=== PATIENT | female | born 1960 | race Caucasian/White ===

== ENCOUNTER → 2018-03-18 | Outpatient (CLI) | payer OTHER ==
[~2018-03-18] MED LIST: ALPR-138 PO; ALPR0.25 PO; AMLO5TAB2 PO; AMLO5TAB22 PO; COZA25TA PO; ESTR0.5T3 PO; ESTR0.5T9 PO; HCTZ50 PO; HYDR25TA5 PO; LOSA25TA31 PO; MELO15TA20 PO; PLAQ200T PO; RANI1TAB5 PO; SERT-129 PO; SERT50 PO
== END ==
LOC: CPRE 11:26
PROVIDERS: ATTEND Orthopaedic Surgery
DX: M17.12 Unilateral primary osteoarthritis, left knee (principal)

== ENCOUNTER 2018-04-03 07:00 | Inpatient (IN) | payer OTHER ==
[~2018-04-03] VITALS: Ht 165.1 cm; Wt 106.4 kg
[~2018-04-03 07:00] MED LIST changes: -ALPR-138 PO; -AMLO5TAB22 PO; -ESTR0.5T9 PO; -HCTZ50 PO; -LOSA25TA31 PO; -SERT50 PO
[2018-04-03 09:22] LABS: BACTERIA, URINE RARE /hpf; BILIRUBIN, URINE NEG (NEG); BLOOD, URINE NEG (NEG); GLUCOSE,URINE NEG (NEG); KETONE, URINE NEG (NEG); NITRITE,URINE NEG (NEG); SQUAMOUS EPITHELIAL CELL URINE 4 /hpf (0-5); TRANSITIONAL EPI CELLS, URINE <1 /hpf; URINE COLOR YELLOW (YELLW/STRAW); URINE LEUKOCYTE ESTERASE LARGE (NEG); WHITE BLOOD CELL CLUMPS RARE
[2018-04-03] MEDS ORDERED: DEXAMETHASONE SOD PHOS 20 MG/5 ML VIAL IV PUSH SCH (09:30)
[2018-04-03] MEDS ORDERED: ceFAZolin 2 GM PREMIX 50 ML IV SCH (09:30)
[2018-04-03] MEDS ORDERED: CHLORHEXIDINE GLUCONATE 4% SOLN 120 ML BTL TOPICAL SCH (09:30)
[2018-04-03] MEDS ORDERED: POVIDONE IODINE 7.5% SCRUB 118 ML BOTTLE TOPICAL SCH (09:30)
[2018-04-03] MEDS ORDERED: BUPIVACAINE HCL PF 0.5% 30 ML VIAL ONE (09:34)
[2018-04-03] MEDS ORDERED: BUPIVACAINE LIPOSOME PF 1.3% 20 ML VIAL ONE (09:35)
[2018-04-03] MEDS ORDERED: MIDAZOLAM HCL 2 MG/2 ML VIAL ONE ×2 (09:35→12:56)
[2018-04-03] MEDS ORDERED: METOPROLOL TARTRATE 25 MG TAB PO PRN (09:45)
[2018-04-03] MEDS ORDERED: SODIUM CHLORID 0.9% 500 ML IV PRN (09:45)
[2018-04-03] MEDS ORDERED: POVIDONE IODINE 5% (ANTISEPSIS KIT) 4 APPLICATIONS EACH NARE PRN (09:45)
[2018-04-03] MEDS ORDERED: CHLORHEXIDINE GLUCONATE 2 % 1 PACK (2 CLOTHS) TOPICAL PRN (09:45)
[2018-04-03] MEDS ORDERED: LACTATED RINGER'S 1000 ML IV PRN (09:45)
[2018-04-03] MEDS ORDERED: SCOPOLAMINE 1.5 MG PATCH ONE (09:53)
[2018-04-03] MEDS ORDERED: APREPITANT 40 MG CAP ONE (09:53)
[2018-04-03] MEDS ORDERED: FAMOTIDINE 20 MG/2 ML VIAL ONE (09:54)
[2018-04-03] MEDS ORDERED: ROPIVACAINE PERI-ARTICULAR INJECTION. P-ARTICULR SCH ×5 (10:00)
[2018-04-03] MEDS ORDERED: VANCOMYCIN 1 GM/200 ML INJ 200 ML IV SCH (10:00)
[2018-04-03 10:30] VITALS: PULSE 80
[2018-04-03] MEDS ORDERED: GENTAMICIN SULFATE 80 MG/2 ML VIAL ONE (10:48)
[2018-04-03] MEDS ORDERED: TRANEXAMIC ACID IV SCH ×2 (11:00→15:00)
[2018-04-03] MEDS ORDERED: SODIUM CHLORIDE 0.9% IV SCH ×2 (11:00→15:00)
[2018-04-03] MEDS ORDERED: GLYCOPYRROLATE 1 MG/5 ML SYRINGE IV PUSH ONE (12:00)
[2018-04-03] MEDS ORDERED: LIDOCAINE HCL 1% PF 5 ML SYRINGE OTHER ONE (12:00)
[2018-04-03] MEDS ORDERED: NEOSTIGMINE 5 MG/5 ML SYRINGE IV PUSH ONE (12:00)
[2018-04-03] MEDS ORDERED: ceFAZolin INJ 1,000 MG VIAL IV ONE (12:00)
[2018-04-03] MEDS ORDERED: PROPOFOL 200 MG/20 ML AMP IV ONE (12:00)
[2018-04-03] MEDS ORDERED: ONDANSETRON HCL 4 MG/2 ML VIAL IV PUSH ONE (12:00)
[2018-04-03] MEDS ORDERED: LACTATED RINGER'S 1000 ML INJ 1,000 ML IV ONE (12:00)
[2018-04-03] MEDS ORDERED: PHENYLEPH/NS 1000 MCG/10 ML SYR IV ONE (12:00)
[2018-04-03] MEDS ORDERED: ePHEDrine/NS 25 MG/5 ML SYRINGE IV ONE (12:00)
[2018-04-03] MEDS ORDERED: ACETAMINOPHEN 1000 MG/100 ML 100 ML IV ONE (12:55)
[2018-04-03] MEDS ORDERED: BISACODYL 10 MG SUPP RECTAL PRN (13:15)
[2018-04-03] MEDS ORDERED: ALUMINUM/MAGNESIUM/SIMETH 30 ML CUP PO PRN (13:15)
[2018-04-03] MEDS ORDERED: ALPRAZolam 0.25 MG TAB PO PRN (13:15)
[2018-04-03] MEDS ORDERED: ONDANSETRON ODT 4 MG TAB PO PRN (13:15)
[2018-04-03] MEDS ORDERED: Post-op Orders (for Pharmacy) XX ONE (13:15)
[2018-04-03] MEDS ORDERED: MAGNESIUM HYDROXIDE SUSP 30 ML CUP PO PRN (13:15)
[2018-04-03] MEDS ORDERED: MORPHINE SULFATE 4 MG/ML INJ IV PUSH PRN (13:15)
[2018-04-03] MEDS ORDERED: NALOXONE HCL 0.4 MG/ML AMP IV PUSH PRN (13:15)
[2018-04-03] MEDS ORDERED: diphenhydrAMINE HCL 50 MG/ML VIAL IV PUSH PRN (13:15)
--- NOTE | 2018-04-03 13:16 | PD.OP ---
cc: Sam Sarabia MD Operative Report Date of Surgery: April 03, 2018 Preoperative Diagnosis: Left knee severe osteoarthritis Postoperative Diagnosis: Same Procedure: Left total knee arthroplasty Anesthesia: Adductor canal block and a general Surgeon: Sam Sarabia Wound Specialist(s): KEAN Larios The surgical procedure was assisted by my Advanced Registered Nurse Practitioner. My HEALTHCARE ANALYST presence was necessary throughout this case for the manipulation and positioning of the surgical extremity. My HEALTHCARE ANALYST was assisting me throughout the duration of this procedure. The skill set of an Advance Registered Nurse Practitioner was medically necessary to complete this procedure. During the surgical case, the emanations analysis technician was working at the back table and the Advance Registered Nurse Practitioner was directly assisting me. Operation and Findings: IMPLANTS: DePuy Attune: Patella: size 32. Femur, posterior stabilized size 6 narrow. Tibia, rotating platform size 5. Tibial insert, rotating platform, posterior stabilized size 5 mm thickness. ESTIMATED BLOOD LOSS: 100 cc TOURNIQUET TIME: 38 minutes at 250 mmHg pressure. JUSTIFICATION FOR PROCEDURE: The patient has end-stage osteoarthritis to the knee. There is an attached conservative measures pathway form in the chart that describes the nonoperative measures that were undertaken prior to consideration of surgical management. The patient understood the risks and benefits of surgical management. See my office notes for further details PROCEDURE: The patient was brought back to the operative theatre. Adequate anesthesia was obtained. The patient received intravenous vancomycin and Ancef. Note a test dose of Ancef was given in the beginning and the patient did not have a reaction. The lower extremity was prepped and draped in the usual sterile fashion.The leg was exsanguinated, the tourniquet was raised. A standard anterior incision was performed followed by medial parapatellar arthrotomy was performed. End-stage arthritis was identified. Osteotomy of the patella was performed. We drilled holes for the patella. We trialed the patella component. We placed an intramedullary guide into the distal femur. We ultimately resected 11 mm off of the distal femur in 5 degrees of valgus. The remnants of the ACL and PCL were resected. Osteotomy of the proximal tibia was performed, resecting 6 mm off of the medial side. This was done with 3 degrees of posterior slope using an extramedullary guide. The distal end of the guide was placed in the mid aspect of the ankle. The femur was sized, and four chamfer cuts were completed in 3 of external rotation. We then cut the central box in the distal femur to replace the PCL. We resected the remnants of the menisci and removed osteophytes off of the femur and tibia. We then trialed the knee. We punched the tibia for the keel, and then used standard technique to cement in components. Excess cement was removed. We trialed the knee again and the final polyethylene thickness was chosen to provide extension to 0 degrees, and flexion of 140 degrees to gravity. The ligaments were appropriately balanced. Lateral release was not necessary to obtain excellent patellofemoral tracking. The tourniquet was released and adequate hemostasis was obtained. An intra- articular injection of a ropivacaine cocktail was injected. The posterior knee was inspected for excess cement, which was removed. The final polyethylene was put into position after thorough irrigation. We then closed deep fascia with a #2 Stratafix followed by skin with 2-0 Vicryl followed by Dermabond dressing. Postop plan is to weight-bear as tolerated. DVT prophylaxis will be performed with SCDs, DAMION longo, early mobilization, and Lovenox followed by aspirin. Sam Sarabia MD April 03, 2018 13:16
[2018-04-03] MEDS ORDERED: NORC5TAB PO (13:21)
[2018-04-03] MEDS ORDERED: ASPI-183 PO (13:21)
[2018-04-03] MEDS ORDERED: ENOX40IN SQ (13:21)
[2018-04-03] MEDS ORDERED: DO NOT ADM ANY ANTICOAGULANT DRUGS PRN (13:36)
--- NOTE | 2018-04-03 13:52 | HHI.DCPOC ---
Discharge Care Plan Diagnosis: (1) Primary localized osteoarthrosis, lower leg (2) Status post total knee replacement, left Your Health Problems Are: Difficulty with ADL Goals to Promote Your Health * To prevent worsening of your condition and complications * To maintain your health at the optimal level Directions to Meet Your Goals Take your medications as prescribed Follow your dietary instruction Follow activity as directed Keep your appointments as scheduled Take your immunizations and boosters as scheduled If your symptoms worsen call your PCP, if no PCP go to Urgent Care Center or Emergency Room Smoking is Dangerous to Your Health. Avoid second hand smoke Call the 24-hour hour crisis hotline for domestic abuse at [facility] April 03, 2018 13:52
--- NOTE | 2018-04-03 13:53 | HHI.FF ---
Face to Face Verification Diagnosis: (1) Primary localized osteoarthrosis, lower leg (2) Status post total knee replacement, left Physical Therapy Gait training, Transfer training, bed to chair Knee: Total knee Left LE Weight Bearing: WB as tolerated Left LE Range of Motion: Active ROM Nursing Nursing: Parish lynn Dressing Changes: Do not change dressing Additional Instructions First dressing change in the office I have seen patient Carisa Berumen on 04/03/18. My clinical findings support the need for the requested home health care services because: Limited ability to care for self High risk of falls I certify that my clinical findings support that this patient is homebound because: Post-op weakness Unsteady gait/balance [facility] April 03, 2018 13:53
[2018-04-03] MEDS ORDERED: *morphine SULFATE 4 MG/ML PERIprocedure ONLY ONE ×2 (13:55→14:23)
[2018-04-03] MEDS ORDERED: COMMODE 3-IN-11 MIS (13:56)
[2018-04-03] MEDS ORDERED: CPMMACHINE (13:56)
[2018-04-03] MEDS ORDERED: WALKER WHEELS/F1 MIS (13:56)
[2018-04-03] MEDS: SODIUM CHLOR 0.9% 1000 ML INJ 1,000 ML IV SCH ×2 (14:00→23:12)
--- NOTE | 2018-04-03 14:24 | RADRPT ---
EXAM DATE: 04/03/2018 2:21 PM EDT AGE/SEX: 57 years / Female INDICATIONS: Post-op total left knee arthroplasty. CLINICAL DATA: This is the patient's initial encounter. Patient reports that signs and symptoms have been present for 1 day and indicates a pain score of 5/10. MEDICAL/SURGICAL HISTORY: Hypertension. section. Hysterectomy. Bilateral first toe to argelia joint replacement. COMPARISON: No prior [facility] exams available for comparison. FINDINGS: AP and lateral views of the left knee were obtained and demonstrate the patient status post arthropla sty. The femoral and tibial components are intact and in normal alignment. There are postoperative ch anges involving the patella. Anterior soft tissue swelling and gas is noted. CONCLUSION: Expected postoperative changes status post arthroplasty. Electronically signed by: Eldon Arreguin MD 04/03/2018 2:23 PM EDT
[2018-04-03] MEDS ORDERED: DIMETHICONE/OXYBENZONE/PADMIATE LIP BALM 4.25 GM TOPICAL ONE (14:33)
[2018-04-03] MEDS: ACETAMINOPHEN/HYDROcodone 325 MG/5 MG TAB PO PRN ×2 (16:15→18:23)
--- NOTE | 2018-04-03 16:20 | PD.CONS ---
HPI Service [facility] Hospitalists Consult Requested By Dr. Sam Sarabia Reason for Consult Medical management Primary Care Physician Chuck Carlin Jr, MD Diagnoses: History of Present Illness Ms. Berumen is a pleasant 57 y/o WF with HTN, hyperlipidemia, diet controlled diabetes mellitus, mixed connective tissue disease, and osteoarthritis. [place] [facility] [place] for elective left total knee arthroplasty which was performed by Dr. Sarabia. [facility] Hospitalist team was consulted to help with management of the pts chronic medical issues. She is seen post-operatively in PACU. No specific complaints at the time of examination. She denies any chest pain, SOB, abdominal pain. Her vital signs are stable on the monitor. Pt did not have a Garcia cath post-operatively. Review of Systems ROS Limitations: Clinical Condition Constitutional: DENIES: Fever, Chills Respiratory: DENIES: Shortness of breath Cardiovascular: DENIES: Chest pain Gastrointestinal: COMPLAINS OF: Nausea, DENIES: Abdominal pain, Vomiting Musculoskeletal: COMPLAINS OF: Joint pain Neurologic: DENIES: Headache Past Family Social History Past Medical History HTN Diet controlled diabetes mellitus, Hgb A1C 6.4% in 09/2017 Mixed connective tissue disease Hyperlipidemia YESSENIA Anxiety Migraine headaches Osteoarthritis Osteoporosis GERD Past Surgical History Appendectomy Cesarian section Hysterectomy, partial Unilateral oophorectomy Hand surgery Foot surgery Reported Medications Hydrochlorothiazide 25 Mg PO DAILY Meloxicam 15 Mg PO DAILY Sertraline 100 Mg PO DAILY Cozaar 25 Mg PO DAILY Estrace 0.5 Mg PO DAILY Amlodipine 5 Mg PO DAILY Alprazolam 0.25 Mg PO Q8H PRN Plaquenil 200 Mg PO BID Ranitidine 75 Mg PO BID Allergies: Coded Allergies: latex (Verified Allergy, Severe, RASH, ITCHING, HANDS SWELLING, 04/03/18) codeine (Verified Allergy, Mild, ITCHING, 04/03/18) penicillin G (Verified Allergy, Mild, RASH, 04/03/18) sulfamethoxazole (Verified Allergy, Mild, HIVES AND ITCHING, 04/03/18) trimethoprim (Verified Allergy, Mild, HIVES AND ITCHING, 04/03/18) Family History Noncontributory Social History Denies any alcohol, tobacco or illicit drug use 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 SKIN: No rashes, ecchymoses or lesions. Cool and dry. HEENT: Atraumatic. Normocephalic. No temporal or scalp tenderness. No scleral icterus. Airway patent. NECK: Trachea midline, supple, nontender CARDIO: Regular. RESP: CTA bilaterally. No wheezes, rales, or rhonchi. ABD: +BS, soft, non-tender, nondistended. EXT: Left LE in knee immobilizer NEURO: Awake and alert. Motor and sensory grossly within normal limits. Normal speech. Laboratory Laboratory Tests Test 04/03/18 08:55 Urine Color YELLOW Urine Turbidity HAZY Urine pH 6.0 Urine Specific [place] 1.016 Urine Protein NEG Urine Glucose (UA) NEG Urine Ketones NEG Urine Occult Blood NEG Urine Nitrite NEG Urine Bilirubin NEG Urine Urobilinogen LESS THAN 2.0 Urine Leukocyte Esterase LARGE Urine RBC 3 Urine WBC 18 Urine WBC Clumps RARE Urine Squamous Epithelial Cells 4 Urine Transitional Epithelial Cells <1 Urine Bacteria RARE Microscopic Urinalysis Comment CULTURE INDICATED Date/Time Source Procedure Growth Status 04/03/18 08:55 Urine Clean Catch Urine Culture Pending Received Imaging Last Impressions Knee X-Ray 04/03/18 1312 Signed Impressions: CONCLUSION: Expected postoperative changes status post arthroplasty. Assessment and Plan Problem List: (1) Status post total knee replacement, left ICD Codes: Z96.652 - Presence of left artificial knee joint Status: Acute Plan: - Pt s/p left total knee replacement on 04/03/[address] Sarabia - Post-op pain control per Ortho - PT daily - IS - Constipation precautions - DVT prophylaxis with Lovenox to be started on 04/04 (2) HTN (hypertension) ICD Codes: I10 - Essential (primary) hypertension Status: Chronic Plan: - Home meds continued with parameters - Monitor BP closely (3) GERD (gastroesophageal reflux disease) ICD Codes: K21.9 - Gastro-esophageal reflux disease without esophagitis Status: Chronic Plan: - PPI (4) Mixed connective tissue disease ICD Codes: M35.1 - Other overlap syndromes Status: Chronic Plan: - Pts Plaquenil resumed - Pt follows with Dr. Kulkarni as an outpt (5) Hyperlipidemia ICD Codes: E78.5 - Hyperlipidemia, unspecified Status: Chronic Assessment and Plan Patient examined. Assessment and plan formulated with Jessica GARRISONC. I agree with the above. s/p left tka. medically stable will follow. Jessica Yee April 03, 2018 16:20 Jos Perez MD April 03, 2018 16:32
[2018-04-03 20:00] VITALS: BP 113/59; PULSE 100; RESP 18; TEMP 98.6; O2SAT 95
[2018-04-03] MEDS: FAMOTIDINE 20 MG TAB PO SCH (20:11)
[2018-04-03] MEDS: HYDROXYCHLOROQUINE SULFATE 200 MG TAB PO SCH (20:11)
[2018-04-03] MEDS ORDERED: ZOLPIDEM TARTRATE 5 MG TAB PO PRN (21:00)
[2018-04-04 00:01] VITALS: BP 106/58; PULSE 79; RESP 17; TEMP 97.6; O2SAT 94
[2018-04-04] MEDS: ACETAMINOPHEN/HYDROcodone 325 MG/5 MG TAB PO PRN ×6 (00:26→22:25)
[2018-04-04 04:00] VITALS: BP 111/63; PULSE 78; RESP 18; TEMP 98.7; O2SAT 95
[2018-04-04 06:08] LABS: HEMATOCRIT 37.1 % (35.0-46.0); HEMOGLOBIN 12.3 GM/DL (11.6-15.3); MEAN CELL VOLUME 83.1 FL (80.0-100.0); MEAN CORPUSCULAR HEMOGLOBIN 27.5 PG (27.0-34.0); MEAN CORPUSCULAR HGB CONC 33.1 % (32.0-36.0); MEAN PLATELET VOLUME 7.4 FL (7.0-11.0); PLATELET COUNT 314 TH/MM3 (150-450); RED BLOOD COUNT 4.46 MIL/MM3 (4.00-5.30); RED CELL DISTRIBUTION WIDTH 13.9 % (11.6-17.2); WHITE BLOOD COUNT 12.3 TH/MM3 (4.0-11.0)
[2018-04-04] MEDS ORDERED: DEXAMETHASONE SOD PHOS 20 MG/5 ML VIAL IV ONE (07:45)
[2018-04-04 08:00] VITALS: BP 101/61; PULSE 72; RESP 16; TEMP 97.7; O2SAT 97
[2018-04-04] MEDS: amLODIPine BESYLATE 5 MG TAB PO SCH (09:00)
[2018-04-04] MEDS: HYDROCHLOROTHIAZIDE 25 MG TAB PO SCH (09:00)
[2018-04-04] MEDS: LOSARTAN 25 MG TAB PO SCH (09:00)
[2018-04-04] MEDS: ESTRADIOL 1 MG TAB PO SCH (09:06)
[2018-04-04] MEDS: FAMOTIDINE 20 MG TAB PO SCH ×2 (09:06→22:14)
[2018-04-04] MEDS: SERTRALINE HCL 100 MG TAB PO SCH (09:06)
[2018-04-04] MEDS: HYDROXYCHLOROQUINE SULFATE 200 MG TAB PO SCH ×2 (09:06→22:15)
[2018-04-04] MEDS: SODIUM CHLOR 0.9% 1000 ML INJ 1,000 ML IV SCH ×2 (09:12→19:12)
[2018-04-04 12:00] VITALS: BP 110/56; PULSE 72; RESP 16; TEMP 98.6; O2SAT 96
[2018-04-04] MEDS: ENOXAPARIN SODIUM 40 MG/0.4 ML SYRINGE SQ SCH (12:29)
[2018-04-04 16:00] VITALS: BP 118/66; PULSE 74; RESP 16; TEMP 98.2; O2SAT 94
--- NOTE | 2018-04-04 18:22 | PD.ORT.PN ---
Subjective Post Op Day #: 1 Subjective Remarks Patient is resting in bed with mild to moderate left knee pain. Patient planning on discharge to SNF on Sunday. Objective Vitals Vital Signs Date Time Temp Pulse Resp B/P (MAP) Pulse Ox O2 Delivery O2 Flow Rate FiO2 04/04/18 16:00 98.2 74 16 118/66 (83) 94 04/04/18 12:00 98.6 72 16 110/56 (74) 96 04/04/18 08:00 97.7 72 16 101/61 (74) 97 04/04/18 04:00 98.7 78 18 111/63 (79) 95 04/04/18 00:01 97.6 79 17 106/58 (74) 94 04/03/18 20:00 98.6 100 18 113/59 (77) 95 I/O 04/03/18 04/03/18 04/03/18 04/04/18 04/04/18 04/04/18 07:00 15:00 23:00 07:00 15:00 23:00 Intake Total 1200 ml 100 ml 800 ml Output Total 100 ml Balance 1100 ml 100 ml 800 ml Intake Oral 600 ml IV Total 100 ml 200 ml Other 1200 ml Output Estimated Blood Loss 100 ml # Voids 3 Result Diagram: 04/04/18 0537 Procedures Left TKA Objective Remarks Dressing is C/D/I. EHL/TA/G intact. 2+ pedal pulse. Small ecchymosis to the left knee. Calf is soft and nontender. + SILT distally. Assessment & Plan Ortho Post Op Day #: 1 Problem List: Assessment and Plan POD #1: Left TKA 1. WBAT LLE 2. Lovenox followed by ASA for DVT prophylaxis 3. Ice to the left knee PRN 4. Stable for discharge to SNF Sunday morning 5. F/U in the office in 1-[address] Sarabia or KENA Darling Daniel Scott ARNP April 04, 2018 18:22
[2018-04-04 20:00] VITALS: BP 116/57; PULSE 73; RESP 17; TEMP 97.8; O2SAT 94
[2018-04-04] MEDS: MULTIVITAMINS/MINERALS THERAPEUTIC TAB PO SCH (22:15)
[2018-04-04] MEDS: DOCUSATE SODIUM 100 MG CAP PO SCH (22:15)
[2018-04-05 00:01] VITALS: BP 105/59; PULSE 69; RESP 18; TEMP 97.6; O2SAT 95
[2018-04-05] MEDS: SODIUM CHLOR 0.9% 1000 ML INJ 1,000 ML IV SCH ×2 (05:12→15:12)
[2018-04-05 05:15] LABS: HEMATOCRIT 35.1 % (35.0-46.0); HEMOGLOBIN 11.5 GM/DL (11.6-15.3); MEAN CELL VOLUME 83.2 FL (80.0-100.0); MEAN CORPUSCULAR HEMOGLOBIN 27.2 PG (27.0-34.0); MEAN CORPUSCULAR HGB CONC 32.7 % (32.0-36.0); MEAN PLATELET VOLUME 7.5 FL (7.0-11.0); PLATELET COUNT 284 TH/MM3 (150-450); RED BLOOD COUNT 4.22 MIL/MM3 (4.00-5.30); RED CELL DISTRIBUTION WIDTH 13.9 % (11.6-17.2); WHITE BLOOD COUNT 11.2 TH/MM3 (4.0-11.0)
[2018-04-05] MEDS: ACETAMINOPHEN/HYDROcodone 325 MG/5 MG TAB PO PRN ×3 (05:28→14:04)
[2018-04-05 08:00] VITALS: BP 102/58; PULSE 69; RESP 17; TEMP 97.8; O2SAT 97
[2018-04-05] MEDS: HYDROCHLOROTHIAZIDE 25 MG TAB PO SCH (09:00)
[2018-04-05] MEDS: amLODIPine BESYLATE 5 MG TAB PO SCH (09:00)
[2018-04-05] MEDS: LOSARTAN 25 MG TAB PO SCH (09:00)
[2018-04-05] MEDS: MULTIVITAMINS/MINERALS THERAPEUTIC TAB PO SCH (09:07)
[2018-04-05] MEDS: FAMOTIDINE 20 MG TAB PO SCH (09:07)
[2018-04-05] MEDS: SERTRALINE HCL 100 MG TAB PO SCH (09:07)
[2018-04-05] MEDS: DOCUSATE SODIUM 100 MG CAP PO SCH (09:07)
[2018-04-05] MEDS: HYDROXYCHLOROQUINE SULFATE 200 MG TAB PO SCH (09:08)
[2018-04-05] MEDS: ESTRADIOL 1 MG TAB PO SCH (09:08)
[2018-04-05 12:00] VITALS: BP 113/57; PULSE 78; RESP 17; TEMP 97.9; O2SAT 97
[2018-04-05] MEDS: ENOXAPARIN SODIUM 40 MG/0.4 ML SYRINGE SQ SCH (14:04)
[2018-04-05 16:00] VITALS: BP 110/60; PULSE 70; RESP 17; TEMP 98; O2SAT 97
--- NOTE | 2018-04-08 07:48 | HHI.DS ---
Discharge Summary Admission Date April 03, 2018 at 08:39 Discharge Date: Apr 05, 2018 Admitting Diagnosis Primary localized osteoarthritis, lower extremity Status post total knee replacement, LEFT Diagnosis: (1) Primary localized osteoarthrosis, lower leg Diagnosis: Principal ICD Codes: M17.10 - Unilateral primary osteoarthritis, unspecified knee (2) Status post total knee replacement, left Diagnosis: Principal ICD Codes: Z96.652 - Presence of left artificial knee joint Status: Acute Procedures Left TKA Brief History This is a 57 year old female patient with severe osteoarthritis of the LEFT knee. CBC/BMP: 04/05/18 0455 PE at Discharge Dressing is C/D/I. EHL/TA/G intact. 2+ pedal pulse. Small ecchymosis to the left knee. Calf is soft and nontender. + SILT distally. Hospital Course The patient was admitted with severe osteoarthritis of the LEFT knee for a LEFT total knee arthroplasty. The patient's surgery went well with no complication. The patient is weightbearing as tolerated. The patient is on a regular diet. The patient was placed on Lovenox followed by aspirin for DVT prophylaxis. The patient at was discharged to a care home facility for rehabilitation. The patient will follow in the office as previously scheduled with Dr. Sarabia or KENA Darling Pt Condition on Discharge: Stable Discharge Disposition: Discharge to SNF Discharge Instructions Diet Instructions: As Tolerated, No Restrictions Activities You Can Perform: Weight Bearing as Laura Activities to Avoid: Strenuous Activity Follow up Referrals: Orthopedics with Sam aSrabia MD New Medications: Aspirin (Aspirin) 325 Mg Tab 325 MG PO DAILY for Prevent Blood Clot, #30 TAB 0 Refills Start Aspirin after Lovenox is completed. Commode 3-in-1 (Commode 3-in-1) 1 Mis Mis EA .XX DIRECTED, #1 0 Refills CPM-Continuous Passive Motion Machine (CPM-Continuous Passive Motion Machine) 1 Ea Device EA .XX DIRECTED, #1 0 Refills Enoxaparin Inj (Enoxaparin Inj) 40 Mg/0.4 Ml Syr 40 MG SQ DAILY for Blood Clot Prevention, #10 SYRINGE 0 Refills Start Aspirin after Lovenox is completed. Hydrocodone-Acetaminophen ([place]) 5 Mg-325 Mg Tab 1-2 TAB PO Q4H PRN for PAIN, #50 TAB 0 Refills Walker with Front Wheels (Walker with Front Wheels) 1 Mis Mis EA .XX DIRECTED, #1 0 Refills Continued Medications: Amlodipine (Amlodipine) 5 Mg Tab 5 MG PO DAILY for Blood Pressure Management, #30 TAB 0 Refills Estradiol (Estrace) 0.5 Mg Tab 0.5 MG PO DAILY for Estrogen Supplements, #30 TAB 0 Refills Hydrochlorothiazide (Hydrochlorothiazide) 25 Mg Tab 25 MG PO DAILY, #30 TAB 0 Refills Hydroxychloroquine (Plaquenil) 200 Mg Tab 200 MG PO BID, #60 TAB 0 Refills Take with food Losartan (Cozaar) 25 Mg Tab 25 MG PO DAILY for Blood Pressure Management, #30 TAB 0 Refills Ranitidine (Ranitidine 75) 75 Mg Tab 75 MG PO BID for Heartburn, TAB 0 Refills Take 30 to 60 minutes before eating food or drinking beverages that cause heartburn. Sertraline (Sertraline) 100 Mg Tab 100 MG PO DAILY, #30 TAB 0 Refills Discontinued Medications: Alprazolam (Alprazolam) 0.25 Mg Tab 0.25 MG PO Q8H PRN for ANXIETY, TAB 0 Refills Meloxicam (Meloxicam) 15 Mg Tab 15 MG PO DAILY for Arthritis Pain, #30 TAB 0 Refills [facility] Apr 08, 2018 07:48
== END 2018-04-05 18:02 | DRG 470 ==
LOC: EDSTATUS 07:00 → HSDI 08:39 → N06A 17:22
PROVIDERS: ADMIT Orthopaedic Surgery; ATTEND Orthopaedic Surgery
PROC: 0SRD0J9 Replacement of Left Knee Joint with Synthetic Substitute, Cemented, Open Approach (ICD-10-PCS; principal; 2018-04-03 11:29)
DX: M17.12 Unilateral primary osteoarthritis, left knee (principal); M35.1 Other overlap syndromes; I10 Essential (primary) hypertension; K21.9 Gastro-esophageal reflux disease without esophagitis; E11.9 Type 2 diabetes mellitus without complications; F41.9 Anxiety disorder, unspecified; E78.5 Hyperlipidemia, unspecified; Z90.710 Acquired absence of both cervix and uterus; Z88.5 Allergy status to narcotic agent; Z88.0 Allergy status to penicillin; Z88.2 Allergy status to sulfonamides; Z88.1 Allergy status to other antibiotic agents; Z91.040 Latex allergy status
CPT/HCPCS: 73560; 81001; 85027; 86850; 86900; 86901; 87086; 94150; C1776; C9290; J0131; J0690; J0735; J1100; J1580; J1650; J1885; J2250; J2270; J2370; J2405; J2710; J2795; J3010; J3370; J7030; J7120; J8501